=== PATIENT | male | born 1965 | race Caucasian/White ===

== ENCOUNTER 2016-09-21 11:07 | Day surgery (SDC) | payer BC ==
[~2016-09-21 11:07] MED LIST: BUSPIRONE HCL15 M2 PO; CPAP; OMEPRAZOLE40 M2 PO; TYLENOL EXTRA500 M1 PO
--- NOTE | 2016-09-21 18:50 | NUR ---
VIRTUAL CARE NOTE: ASSESSMENT DEFERRED. PT. SLEEPING
[2016-09-22] MEDS ORDERED: CEFDINIR300 M1 PO (11:52)
[2016-09-22] MEDS ORDERED: HYCET 7.5 MG-3473 M2 PO (11:54)
[2016-09-22] MEDS ORDERED: PERCOCET 5-3251 EACH PO (11:56)
--- NOTE | 2016-09-22 15:46 | NUR ---
[facility] DISCHARGE NOTE-REVIEWED DISCHARGE INSTRUCTIONS WITH PATIENT AND REVIEWED NEW MEDICATIONS AND INFO ON THEM. PATIENT WAS ABLE TO COMPLETE THE TEACHBACK ON WHEN TO CALL DOCTOR, MEDICATIONS, ACTIVITY AND FOLLOW UP APPT. PATIENT HAD NO FURTHER QUESTIONS OR CONCERNS AT THIS TIME
== END 2016-09-22 16:00 ==
LOC: SRG 11:07 → SHSB 11:08 → ORE 12:54 → 5WD 15:40
PROC: 09SM0ZZ Reposition Nasal Septum, Open Approach (ICD-10-PCS; principal; 2016-09-21)
PROC: 0CTN0ZZ Resection of Uvula, Open Approach (ICD-10-PCS; 2016-09-21)
DX: J34.2 Deviated nasal septum (principal); K13.79 Other lesions of oral mucosa; F41.9 Anxiety disorder, unspecified; F32.9 Major depressive disorder, single episode, unspecified; K21.9 Gastro-esophageal reflux disease without esophagitis; G47.30 Sleep apnea, unspecified; Z88.8 Allergy status to other drugs, medicaments and biological substances; Z90.49 Acquired absence of other specified parts of digestive tract
CPT/HCPCS: J1100; J2270